=== PATIENT | male | born 1995 | race Caucasian/White ===

== ENCOUNTER 2019-10-08 19:05 | Emergency (ER) | payer BC, OTHER ==
[2019-10-08 19:20] VITALS: BP 159/111; PULSE 92; TEMP 98.7; BMI 25.7
[2019-10-08] MEDS ORDERED: LOSARTAN POTASSIUM 50 MG TABLET (FP) PO STA (19:41)
--- NOTE | 2019-10-08 19:45 | PDOC ---
Documentation entered by Eden Noguera SCRIBE, acting as scribe for Kemi Meadows MD. Kemi Meadows MD: This documentation has been prepared by the Chuckie henson Xhesika, SCRIBE, under my direction and personally reviewed by me in its entirety. I confirm that the documentation accurately reflects all work, treatment, procedures, and medical decision making performed by me. History of Present Illness - General Chief Complaint: Blood Pressure Problem Stated Complaint: HTN Time Seen by Provider: 10/08/19 19:11 History Source: Patient Exam Limitations: No Limitations - History of Present Illness Initial Comments: 10/08/19 19:29 The patient is a 24 y/o male with no PMH who presents to the ED with hypertension. The pt states his BP was 160/110 [employer]. Pt states that last time he had HTN was back in april 2019. Pt reports daily heart burn associated with sweats, progressively getting worse. Pt states his heart burn is relieved after taking tums, however, returns after a couple of hours. Patient denies any family cardiac disease. PAST SURGICAL HISTORY: no significant history FAMILY HISTORY: no pertinent history SOCIAL HISTORY: Pt lives with family and is employed. MEDICATIONS: reviewed ALLERGIES: As per nursing notes 10/08/19 19:40 Assessment and plan: This is a 24-year-old male who comes in complaining of hypertension. Patient has had hypertension since April of last year. Patient went to the urgent care center today and he was told he needed to come to the ED because his blood pressure was high. Patient does not have a primary care doctor and has not followed up with anybody regarding his hypertension. Patient said that his blood pressure last April was similar to what it is today and it has been unchanged over the last 5 to 6 months. Patient did complain of some heartburn which he takes Tums for that do help but also has not had that worked up or evaluated by primary care doctor. Patient had a cardiogram that was done that showed a heart rate at [address]-T wave changes and a normal EKG Patient will be started on losartan and H2 penelope and referred to her primary care doctor. Past History - Past Medical History Allergies/Adverse Reactions: Allergies Allergy/AdvReac Type Severity Reaction Status Date / Time Penicillins Allergy Verified 10/08/19 19:06 Home Medications: Ambulatory Orders Losartan Potassium [Cozaar -] 50 mg PO DAILY #30 tablet 10/08/19 Omeprazole/Sodium Bicarbonate [Omeprazole-Bicarb 20-1,100 Cap] 1 each PO DAILY # 14 capsule 10/08/19 COPD: No - Immunization History Immunization Up to Date: Yes - Psycho Social/Smoking Cessation Hx Smoking Status: No Smoking History: Never smoked Have you smoked in the past 12 months: No Number of Cigarettes Smoked Daily: 0 Information on smoking cessation initiated: No 'Breaking Loose' booklet given: 04/16/16 Hx Alcohol Use: No Drug/Substance Use Hx: No Substance Use Type: None Review of Systems - Review of Systems Able to Perform ROS?: Yes Comments:: 10/08/19 19:32 General: No fevers or chills, no weakness, no weight loss. +elevated BP. + sweats HEENT: No change in vision. No sore throat,. No ear pain CardioVascular: No chest pain or shortness of breath. +heart burn Respiratory:No cough, or wheezing. Gastrointestinal: no nausea, vomiting, diarrhea or constipation, No rectal bleeding Genitourinary: No dysuria, hematuria, or frequency Musculoskeletal: No joint or muscle pain or swelling Neurologic: No headache, vertigo, dizziness or loss of consciousness Psychiatric: nor depression Skin: No rashes or easy bruising Endocrine: no increased thirst or abnormal weight change Allergic: no skin or latex allergy *Physical Exam - Vital Signs Last Vital Signs Temp Pulse Resp BP Pulse Ox 98.7 F 92 H 16 159/111 H 98 10/08/19 19:06 10/08/19 19:06 10/08/19 19:06 10/08/19 19:06 10/08/19 19:06 - Physical Exam 10/08/19 19:36 GENERAL: The patient is awake, alert, and fully oriented, in no acute distress. HEAD: Normal with no signs of trauma. EYES: Pupils equal, round and reactive to light, extraocular movements intact, sclera anicteric, conjunctiva clear. EARS: +mild erythema of R ear. + Mild erythema of R posterior oropharynx. + small non tender minimally enlarged lymph node of b/l submandibular. EXTREMITIES: Normal range of motion, no edema. NEUROLOGICAL: Normal speech, normal gait. PSYCH: Normal mood, normal affect. SKIN: Warm, Dry, normal turgor, no rashes or lesions noted. Discharge - Discharge Information Problems reviewed: Yes Clinical Impression/Diagnosis: Essential hypertension Condition: Stable Disposition: HOME - Admission No - Follow up/Referral - Patient Discharge Instructions Patient Printed Discharge Instructions: DI for High Blood Pressure Additional Instructions: Get your prescription filled for the blood pressure medicine losartan as well as the acid reflux medication omeprazole and take 1 a day. Follow-up with the primary care doctor on Thursday give them a call and get an appointment. Return to the emergency department immediately with ANY new, persistent or worsening symptoms. Continue any medications as previously prescribed by your physician. You should follow up with your primary doctor as soon as possible regarding today's emergency department visit. . Please make sure your doctor reviews the results of your emergency evaluation. Thank you for coming to the Emergency Department today for your care. It was a pleasure to see you today. Please note that your evaluation is INCOMPLETE until you follow-up with your doctor. - Post Discharge Activity
--- NOTE | 2019-10-09 12:17 | EKG ---
Test Reason : Blood Pressure : / mmHG Vent. Rate : 099 BPM Atrial Rate : 099 BPM P-R Int : 142 ms QRS Dur : 084 ms QT Int : 340 ms P-R-T Axes : 062 075 027 degrees QTc Int : 436 ms POOR DATA QUALITY, INTERPRETATION MAY BE ADVERSELY AFFECTED NORMAL SINUS RHYTHM WITH SINUS ARRHYTHMIA NORMAL ECG NO PREVIOUS ECGS AVAILABLE Confirmed by ALEX FENG MD ([id number]) on 10/09/2019 12:17:10 PM Referred By: Confirmed By:ALEX FENG MD
== END 2019-10-08 19:53 | disposition home or self-care (01) ==
LOC: FER 19:05
DX: I10 Essential (primary) hypertension (principal)
CPT/HCPCS: 93005; 99281-25